=== PATIENT | female | born 1985 | race Caucasian/White ===

== ENCOUNTER 2018-06-30 06:15 | Day surgery (SDC) | payer BC ==
[2018-06-23 10:58] VITALS: BMI 21.3
[2018-06-30] MEDS ORDERED: Propofol 10 mg/ml Inj (20 ML) ONE (09:02)
[2018-06-30] MEDS: HYDROmorphone 0.5 mg/0.5 ml ISec IVP PRN ×2 (09:55→10:25)
[2018-06-30 10:57] VITALS: O2SAT 100
[2018-06-30 11:17] VITALS: BP 116/70; PULSE 67; RESP 18; TEMP 97.1
--- NOTE | 2018-07-01 04:46 | OP ---
PROCEDURE DATE: 06/30/2018 PREOPERATIVE DIAGNOSES: Abnormal uterine bleeding, endometrial polyp. POSTOPERATIVE DIAGNOSES: Abnormal uterine bleeding, endometrial polyp, submucosal myoma. PROCEDURES PERFORMED: Hysteroscopic myomectomy, dilation and curettage. ANESTHESIA: General LMA. ESTIMATED BLOOD LOSS: 10 mL. BLOOD PRODUCTS: None. COMPLICATIONS: None. OPERATIVE FINDINGS: Anteverted uterus, 10-week size. Bilateral ostia visualized with mucosa-like lesion within the cavity. DESCRIPTION OF PROCEDURE: Consent was obtained. The patient was transferred to the operating room, where she was given general anesthesia. Once it was found to be adequate, the patient was placed on the operating table in the dorsal supine position with legs supported using stirrups. The patient was prepped and draped in the usual sterile fashion. Time-out confirmed correct patient and correct procedure. A red rubber catheter was inserted in the urethra to drain the Bauer. Bimanual exam was performed with the above-mentioned findings. A Coy retractor was placed in the anterior and posterior fornix of the vagina. The cervix was adequately visualized. A single-tooth tenaculum was placed in the anterior lip of the cervix. Endocervical curettings were obtained with a [facility] curette and sent to [facility]ology on [facility]. The uterus was then sounded to 7 cm, following which the cervix was sequentially dilated to allow for introduction of the hysteroscope under direct visualization using normal saline as the distention media. Bilateral ostia were visualized. There was mass noted within the cavity. Using MyoSure device, the mass was then carefully resected. The MyoSure device was then removed. Gentle curettage was done. There was good hemostasis noted following this . At the end of the procedure, all needle, sponge and instrument counts were noted and correct x2. The patient tolerated the procedure well and was transferred to the recovery room in stable condition. Rajwinder Louis MD
== END 2018-06-30 12:32 | disposition home or self-care (01) ==
LOC: C.SDS 06:15
PROVIDERS: ATTEND Obstetrics & Gynecology
DX: N84.0 Polyp of corpus uteri (principal); N93.9 Abnormal uterine and vaginal bleeding, unspecified
CPT/HCPCS: 58561; 88305; J1170; J1885; J2405; J2704; J3010